=== PATIENT | female | born 1990 | race American Indian/Alaskan Native ===

== ENCOUNTER 2024-06-17 12:48 | Emergency (ER) | payer MEDICAID ==
[~2024-06-17] VITALS: Ht 157.5 cm; Wt 99.8 kg
[~2024-06-17 12:48] MED LIST: ALBU8.5H17 IH; METR70GE27 VG; MICO200S3 VG; XYL25J MM
[2024-06-17 12:58] VITALS: BP 119/75; PULSE 82; RESP 18; TEMP 97.8; O2SAT 98
[2024-06-17] MEDS ORDERED: CLIN300C63 PO (15:00)
[2024-06-17] MEDS: ketorolac trometh 30MG/ML vial 30 MG/ML VIAL IV ONE (15:30)
== END 2024-06-17 15:33 | disposition home or self-care (01) ==
LOC: ER 12:49
DX: K04.7 Periapical abscess without sinus (principal); J45.909 Unspecified asthma, uncomplicated; F15.90 Other stimulant use, unspecified, uncomplicated; F10.90 Alcohol use, unspecified, uncomplicated; Z88.0 Allergy status to penicillin; Z79.899 Other long term (current) drug therapy; Z56.0 Unemployment, unspecified; Y90.9 Presence of alcohol in blood, level not specified
CPT/HCPCS: 99283